=== PATIENT | female | born 2000 | race Caucasian/White ===

== ENCOUNTER → 2020-07-12 10:00 | Outpatient (CLI) | payer BC, SELFPAY | PROVIDERS: PCP Family Medicine; Referring Provider Family Medicine; Visit Provider Family Medicine | DX: Z03.818 Encounter for observation for suspected exposure to other biological agents ruled out (principal) | CPT/HCPCS: 87635; U0003 ==

== ENCOUNTER → 2020-07-18 12:18 | Outpatient (CLI) | payer BC, SELFPAY | PROVIDERS: PCP Family Medicine; Referring Provider Family Medicine; Visit Provider Family Medicine | DX: Z11.59 Encounter for screening for other viral diseases (principal) | CPT/HCPCS: 87635; U0003 ==

== ENCOUNTER → 2020-07-26 15:00 | Outpatient (CLI) | payer BC, SELFPAY | PROVIDERS: Referring Provider Family Medicine; Visit Provider Family Medicine | DX: Z11.59 Encounter for screening for other viral diseases (principal) | CPT/HCPCS: 87635; U0003 ==

== ENCOUNTER → 2020-08-09 07:44 | Outpatient (CLI) | payer BC, SELFPAY | PROVIDERS: Referring Provider Family Medicine; Visit Provider Family Medicine | DX: Z03.818 Encounter for observation for suspected exposure to other biological agents ruled out (principal) | CPT/HCPCS: 87635; U0003 ==

== ENCOUNTER → 2020-08-23 10:25 | Outpatient (CLI) | payer BC, SELFPAY | PROVIDERS: Referring Provider Family Medicine; Visit Provider Family Medicine | DX: Z03.818 Encounter for observation for suspected exposure to other biological agents ruled out (principal) | CPT/HCPCS: 87635; U0003 ==

== ENCOUNTER → 2020-09-06 12:06 | Outpatient (CLI) | payer BC, SELFPAY | PROVIDERS: Referring Provider Family Medicine; Visit Provider Family Medicine | DX: Z03.818 Encounter for observation for suspected exposure to other biological agents ruled out (principal) | CPT/HCPCS: 87635; U0003 ==

== ENCOUNTER → 2020-09-24 14:52 | Outpatient (CLI) | payer BC, SELFPAY | PROVIDERS: Referring Provider Family Medicine; Visit Provider Family Medicine | DX: Z03.818 Encounter for observation for suspected exposure to other biological agents ruled out (principal) | CPT/HCPCS: 87635; U0003 ==